=== PATIENT | female | born 1955 | race Caucasian/White ===

== ENCOUNTER → 2017-05-10 | Outpatient (CLI) | payer OTHER ==
[~2017-05-10] MED LIST: ABILIFY10 MG PO; ASPIR 8181 M1 PO; LANSOPRAZOLE30 MG PO; LIPITOR10 MG PO; PRISTIQ100 MG PO; VALSARTAN-HCTZ1 EACH PO
== END ==
LOC: M.RAD 04-13 08:01
DX: Z13.820 Encounter for screening for osteoporosis (principal); E04.2 Nontoxic multinodular goiter; Z78.0 Asymptomatic menopausal state

== ENCOUNTER → 2018-02-07 | Outpatient (CLI) | payer OTHER | LOC: M.RAD 09:40 | DX: Z12.31 Encounter for screening mammogram for malignant neoplasm of breast (principal) ==

== ENCOUNTER → 2018-05-11 | Outpatient (CLI) | payer OTHER | LOC: M.RAD 10:22 | DX: I10 Essential (primary) hypertension (principal); Z85.820 Personal history of malignant melanoma of skin ==

== ENCOUNTER → 2019-02-13 | Outpatient (CLI) | payer OTHER | LOC: M.RAD 11:05 | DX: Z12.31 Encounter for screening mammogram for malignant neoplasm of breast (principal) ==

== ENCOUNTER → 2019-02-20 | Outpatient (CLI) | payer OTHER | LOC: M.ULTRA 10:11 | DX: N60.01 Solitary cyst of right breast (principal); N28.1 Cyst of kidney, acquired ==

== ENCOUNTER → 2020-02-17 | Outpatient (CLI) | payer OTHER | LOC: M.RAD 13:23 | PROVIDERS: ATTEND Family Medicine | DX: Z12.31 Encounter for screening mammogram for malignant neoplasm of breast (principal) ==

== ENCOUNTER → 2021-02-23 | Outpatient (CLI) | payer MEDICARE | LOC: M.RAD 10:19 | PROVIDERS: ATTEND Family Medicine | DX: Z12.31 Encounter for screening mammogram for malignant neoplasm of breast (principal) ==

== ENCOUNTER → 2021-02-26 | Outpatient (CLI) | payer MEDICARE | LOC: M.ULTRA 09:20 | PROVIDERS: ATTEND Nurse Practitioner Family | DX: N63.10 Unspecified lump in the right breast, unspecified quadrant (principal) ==